=== PATIENT | male | born 1945 | race Caucasian/White ===

== ENCOUNTER 2021-10-28 05:48 | Inpatient (IN) | payer MEDICARE, OTHER ==
[~2021-10-28] VITALS: Ht 182.9 cm; Wt 74.0 kg
[~2021-10-28 05:48] MED LIST: ARTHRITIS PAIN150 GM TOP; HYDROCODON-ACE1 EAC6 PO; NORCO 5/3251 EACH PO
[2021-10-28 06:08] LABS: BASOPHIL 0.3 % (0-2); EOSINOPHIL 1.1 % (0-7); HCT 40.4 % (42.0-52.0); HGB 13.7 g/dl (13.2-18.0); LYMPHOCYTE 5.4 % (15-48); MCH 28.7 pg (25.0-31.0); MCHC 33.9 g/dL (32.0-36.0); MCV 84.7 fL (78.0-100.0); MONOCYTE 3.1 % (0-12); MPV 11.1 fL (6.0-9.5); NEUTROPHIL 89.7 % (41-80); NRBC 0; PLT 284 K/uL (150-400); RBC 4.77 M/uL (4.70-6.00); RDW 15.2 % (11.5-14.0)
[2021-10-28 06:33] LABS: ALBUMIN 3.8 g/dL (3.4-5.0); BILIRUBIN - TOTAL 0.6 mg/dL (0.2-1.0); BUN/CREAT RATIO (CALC) 18.3 RATIO; CREATININE 0.93 mg/dL (0.67-1.17); GLOBULIN (CALCULATION) 3.2 g/dL; POTASSIUM 4.1 mmol/L (3.5-5.1)
[2021-10-28 06:44] LABS: LACTIC ACID 3.2 mmol/L (0.4-1.9)
[2021-10-28 06:48] LABS: INFLUENZA A NAA NEGATIVE (NEGATIVE)
[2021-10-28 06:50] LABS: CORONAVIRUS 2019 SARS-COV-2 POSITIVE (NEGATIVE)
[2021-10-28 08:36] LABS: BILIRUBIN NEGATIVE (NEGATIVE); BLOOD NEGATIVE Ery/uL (NEGATIVE); CLARITY CLEAR (CLEAR); COLOR YELLOW (YELLOW); GLUCOSE (U) NORMAL (NORMAL); LEUKOCYTES NEGATIVE Leu/uL (NEGATIVE); NITRITE NEGATIVE (NEGATIVE); PROTEIN NEGATIVE (NEGATIVE); SPECIFIC GRAVITY 1.015 (1.001-1.030); UROBILINOGEN 0.2 mg/dL (0.2-1.0); pH 5.5 (5.0-9.0)
[2021-10-28] MEDS ORDERED: NORCO 5-325 TA1 EACH PO (15:03)
[2021-10-28] MEDS ORDERED: LIPITOR20 MG PO (15:03)
[2021-10-28] MEDS ORDERED: NORVASC5 MG PO (15:04)
[2021-10-28] MEDS ORDERED: TRAMADOL HCL50 MG PO (15:04)
[2021-10-28] MEDS ORDERED: ZINC50 M2 PO (15:05)
[2021-10-28] MEDS ORDERED: VENTOLIN HFA IN18 GM INH (15:07)
[2021-10-29 06:15] LABS: BASOPHIL 0.1 % (0-2); EOSINOPHIL 0 % (0-7); HGB 10.3 g/dl (13.2-18.0); LYMPHOCYTE 2.5 % (15-48); MCH 27.2 pg (25.0-31.0); MCHC 32.2 g/dL (32.0-36.0); MCV 84.7 fL (78.0-100.0); MONOCYTE 3.3 % (0-12); MPV 10.5 fL (6.0-9.5); NRBC 0; PLT 211 K/uL (150-400); RBC 3.78 M/uL (4.70-6.00); RDW 15.4 % (11.5-14.0); WBC 23.5 K/uL (4.0-10.5)
[2021-10-29 06:21] LABS: NEUTROPHIL 92.7 % (41-80)
[2021-10-29 06:48] LABS: BUN/CREAT RATIO (CALC) 20.9 RATIO; CREATININE 0.91 mg/dL (0.67-1.17); MAGNESIUM 2.2 mg/dL (1.8-2.4); POTASSIUM 3.9 mmol/L (3.5-5.1)
[2021-10-29 07:40] LABS: RETICULOCYTE COUNT 2.2 % (1.0-2.0)
[2021-10-29 07:49] LABS: IRON % SATURATION 5.8 %SAT (20-50)
[2021-10-29 12:21] LABS: FOLIC ACID (SERUM) 18.7 ng/mL (8.6-58.9)
--- NOTE | 2021-10-29 12:48 | NUR ---
10/29/21 Mr. Maher shares a home with his s.o, Chacha "Zo" Mcclure. He is independent in the home and community. Will monitor for 02 needs. Mr. Maher has chose [facility] if 02 is needed.
--- NOTE | 2021-10-29 13:40 | NUR ---
10/29/21 02 is not needed. Sats dropped to 93% per nursing.
[2021-10-29] MEDS ORDERED: POLY-IRON150 MG PO (16:44)
== END 2021-10-29 17:05 | disposition home or self-care (01) | DRG 177 ==
LOC: FER 05:48 → FICU 12:40
PROVIDERS: Emergency Medicine; ADMIT Internal Medicine
PROC: XW033E5 Introduction of Remdesivir Anti-infective into Peripheral Vein, Percutaneous Approach, New Technology Group 5 (ICD-10-PCS; principal; 2021-10-28)
PROC: 3E0333Z Introduction of Anti-inflammatory into Peripheral Vein, Percutaneous Approach (ICD-10-PCS; 2021-10-28)
PROC: 8E0ZXY6 Isolation (ICD-10-PCS; 2021-10-28)
DX: J69.0 Pneumonitis due to inhalation of food and vomit (principal); J96.01 Acute respiratory failure with hypoxia; U07.1 COVID-19; J44.1 Chronic obstructive pulmonary disease with (acute) exacerbation; E87.2 Acidosis; R65.10 Systemic inflammatory response syndrome (SIRS) of non-infectious origin without acute organ dysfunction; I10 Essential (primary) hypertension; D50.9 Iron deficiency anemia, unspecified; E78.5 Hyperlipidemia, unspecified; Z87.891 Personal history of nicotine dependence; Z79.899 Other long term (current) drug therapy
CPT/HCPCS: 36415; 36600; 71045; 71275; 80048; 80053; 81003; 82607; 82746; 82803; 83540; 83550; 83605; 83735; 83880; 84145; 84484; 85025; 87040; 93005; 94010; 94640; 94664; 94667; 94668; C9399; G0480; J0692; J1100; J2543; J2930; J7030; J7050; Q9967; U0002

== ENCOUNTER → 2021-12-03 | Day surgery (SDC) | payer MEDICARE, OTHER ==
[~2021-12-03] VITALS: Ht 182.9 cm; Wt 72.6 kg
[~2021-12-03] MED LIST changes: +ASPIRIN EC81 MG PO; +LIPITOR20 MG PO; +NORCO 5-325 TA1 EACH PO; +NORVASC5 MG PO; +PANTOPRAZOLE SO40 MG PO; +POLY-IRON150 MG PO; +TRAMADOL HCL50 MG PO; +VENTOLIN HFA IN18 GM INH; +ZINC50 M2 PO
[2021-12-03 10:18] LABS: HGB 12.2 g/dl (13.2-18.0); MCH 26.7 pg (25.0-31.0); MCHC 31.3 g/dL (32.0-36.0); MCV 85.3 fL (78.0-100.0); MPV 9.7 fL (6.0-9.5); RBC 4.57 M/uL (4.70-6.00); RDW 15.4 % (11.5-14.0); WBC 7.3 K/uL (4.0-10.5)
[2021-12-03 10:52] LABS: ALBUMIN 3.9 g/dL (3.4-5.0); BILIRUBIN - TOTAL 0.5 mg/dL (0.2-1.0); BUN/CREAT RATIO (CALC) 14.3 RATIO; CREATININE 0.91 mg/dL (0.67-1.17); GLOBULIN (CALCULATION) 3.9 g/dL; TOTAL PROTEIN 7.8 g/dL (6.4-8.2)
== END | disposition home or self-care (01) ==
LOC: FAS 09:19
PROVIDERS: Surgery
DX: D50.0 Iron deficiency anemia secondary to blood loss (chronic) (principal); K31.9 Disease of stomach and duodenum, unspecified; K21.00 Gastro-esophageal reflux disease with esophagitis, without bleeding; K29.60 Other gastritis without bleeding; K57.30 Diverticulosis of large intestine without perforation or abscess without bleeding; K63.89 Other specified diseases of intestine; J44.9 Chronic obstructive pulmonary disease, unspecified; Z87.891 Personal history of nicotine dependence
CPT/HCPCS: 36415; 80053; J2704; J7120